=== PATIENT | male | born 1965 | race Caucasian/White ===

== ENCOUNTER → 2020-10-13 | Outpatient (CLI) | payer OTHER ==
[~2020-10-13] MED LIST: ALLOPURINOL 30300 M1 PO; DIAZEPAM 10 MG10 M2 PO; DILTIAZEM 24HR300 M2 PO; GAVISCON TABLE1 EACH PO; HYDROCHLOROTHIA25 M1 PO; IBUPROFEN 800800 M1 PO; LEXAPRO 10 MG T10 M2 PO; NORCO7.5 PO; PRINIVIL20 MG PO
[2020-10-13 11:45] LABS: URINE BILIRUBIN NEGATIVE (Negative); URINE BLOOD NEGATIVE (Negative); URINE CLARITY CLEAR; URINE COLOR YELLOW; URINE GLUCOSE-RANDOM* NEGATIVE (Negative); URINE KETONES NEGATIVE (Negative); URINE LEUKOCYTES-REFLEX NEGATIVE (Negative); URINE NITRITE-REFLEX NEGATIVE (Negative); URINE PROTEIN (DIPSTICK) NEGATIVE (Negative); URINE UROBILINOGEN 0.2 E.U./dl (0.2-1.0)
[2020-10-13 11:46] LABS: HEMATOCRIT 44.8 % (42.0-52.0); HEMOGLOBIN 15.3 gm/dL (14.0-18.0); MCH 31.2 pg (26.0-34.0); MCHC 34.1 g/dL (28.0-37.0); MCV 91.5 fL (80.0-100.0); RBC 4.9 mil/uL (4.50-6.00); RDW 14.6 % (10.5-14.5); WBC 8.4 thou/uL (4.0-11.0)
[2020-10-13 12:01] LABS: INR 0.95; PROTIME 10.4 Seconds (10.5-12.1)
[2020-10-13 12:02] LABS: ALBUMIN 4.4 g/dL (3.4-5.0); CALCIUM 9.6 mg/dL (8.5-10.1); CREATININE 1.2 mg/dL (0.7-1.3); POTASSIUM 4.3 mmol/L (3.5-5.1)
--- NOTE | 2020-10-13 12:52 | EKG ---
[place] [address] [facility] [place] [address] ELECTROCARDIOGRAM REPORT Name: HOLLY RENEE Room #: [facility].#: [id number] Admission: 10/13/20 Attend Phys: Vish Camejo MD Discharge: Date of : 65 Report #: [id number] [facility] Test Date: 2020-10-13 Test Time: 11:37:42 Pat Name: HOLLY RENEE Department: Room: Gender: Plug Grower: TOMMIE FERRIS : 1965 Requested By: Vish Camejo Order Number: [id number] : Dallas Wynne Measurements Intervals Ravenel Rate: 87 P: 4 RI: 166 QRS: -51 QRSD: 95 T: 31 QT: 370 QTc: 445 Interpretive Statements Sinus rhythm RSR' in V1 or V2, right VCD or RVH No previous ECG available for comparison Electronically Signed On 10-13-2020 12:52:09 CDT by Dallas Wynne [email or web address] <ELECTRONICALLY SIGNED> By: Dallas Wynne MD, [facility] 10/13/20 1252 1137 1137 Dallas Wynne MD, FACC /EPI
== END ==
LOC: PAC 11:03
PROVIDERS: ATTEND Orthopaedic Surgery
DX: Z01.812 Encounter for preprocedural laboratory examination (principal); Z01.810 Encounter for preprocedural cardiovascular examination; M17.12 Unilateral primary osteoarthritis, left knee; I10 Essential (primary) hypertension; Z91.048 Other nonmedicinal substance allergy status

== ENCOUNTER 2020-10-26 06:19 | Day surgery (SDC) | payer OTHER ==
[~2020-10-26] VITALS: Ht 177.8 cm; Wt 100.4 kg
[2020-10-26 08:14] VITALS: BP 131/75
[2020-10-26 12:00] VITALS: BP 124/81
[2020-10-26 12:30] VITALS: BP 120/77
[2020-10-26 13:00] VITALS: BP 134/74
[2020-10-26 13:30] VITALS: BP 120/81
--- NOTE | 2020-10-26 15:03 | NUR ---
ASSESSMENT: CM REVIEWED CHART AND MET WITH PATIENT AT THE BEDSIDE. PT IS S/P KNEE REPLACEMENT. PT REPORTS LIVING IN A HOUSE ALONE BUT REPORTS HE WILL BE STAYING WITH HIS SISTER FOR A FEW DAYS UNTIL A FRIEND COMES IN TOWN TO STAY AT HIS HOME. PT REPORTS HAVING ABOUT 10 STEPS WITH [employer]ANDR[employer] AT HIS SISTERS. PT REPORTS HE ALREADY HAD A WALKER AT HOME AND REPORTS HAVING OUTPATIENT THERAPY ALREADY ARRANGED AT A PLACE IN [place], [place] FOR MONDAY. CM DISCUSSED ROLE. PT DOES NOT ANTICIPATE HAVING ANY NEEDS FROM CM PRIOR TO D/C. PT DID WELL WITH PHYSICAL THERAPY TODAY.
[2020-10-26 15:07] VITALS: BP 120/81
--- NOTE | 2020-10-29 07:30 | O ---
[facility] [place] [address] OPERATIVE REPORT Name: HOLLY RENEE Room #: [facility]#: [id number] Admission: 10/26/20 Attend Phys: Vish Camejo MD Discharge: 10/26/20 Date of : 65 Report #: [id number] THIS REPORT FOR: cc: Yaakov Laura MD, Thomas P. MD Abraham,Vish Rojas MD ~ DATE OF SERVICE: 10/26/2020 PREOPERATIVE DIAGNOSIS: Left knee osteoarthritis. POSTOPERATIVE DIAGNOSIS: Left knee osteoarthritis. PROCEDURE: Left total knee arthroplasty using Navio robotic assistance. SURGEON: Vish Camejo MD. ASSURANCE ENGINEER: Luisa Quinn PA-C. INDICATION FOR ASSURANCE ENGINEER: Throughout the case, extensive retraction, manipulation of the knee was required. This was afforded to me by my retail store assistant. ANESTHESIA: LMA with adductor canal block. IMPLANTS: A Trevizo and Nephew size 8 Journey II BCS Oxinium femur, size 7 tibia, size 9 polyethylene and size 35 patella. TOURNIQUET TIME: 52 minutes. ESTIMATED BLOOD LOSS: 25 mL. COMPLICATIONS: None. SPECIMENS: None. CONDITION UPON LEAVING THE OR: Stable. INDICATIONS FOR PROCEDURE: The patient is a 55-year-old gentleman with severe left knee osteoarthritis. He had failed conservative measures for this and after discussion with him, he elected for left total knee arthroplasty. DESCRIPTION OF PROCEDURE: Risks, benefits, alternatives, complications were discussed in detail with the patient including but not limited to risk of anesthesia, risk of damage to nerves, arteries, blood vessels, risk for infection, bleeding, risk for continued knee pain, DVT, PE, and need for reoperation. Informed consent was obtained from the patient. Left knee was appropriately marked in the preoperative holding area. IV Ancef was given for [facility] [address] [facility] [place] [address] OPERATIVE REPORT Name: HOLLY RENEE Room #: [facility] [place].Geovany.#: [id number] Admission: 10/26/20 Attend Phys: Vish Camejo MD Discharge: 10/26/20 Date of : 65 Report #: [id number] preoperative antibiotics. Adductor canal block was placed by Anesthesia, was brought to the operating room and placed in supine position on the operating table. LMA anesthesia was induced without complication. Tourniquet was placed on the left thigh. Left lower extremity was prepped and draped in normal sterile fashion. Timeout was performed properly identifying the patient and procedure as well as the instrumentation and implants. All in the operating room in agreement. Left lower extremity was exsanguinated, tourniquet was inflated. Tourniquet time was 52 minutes. Standard midline approach to knee was made with 10 blade through the skin. Dissection was taken down sharply to fascia. Deep flaps were developed medially and laterally. Fresh 10 blade was used to make a medial parapatellar arthrotomy and the knee was inspected. There was severe tricompartmental osteoarthritis. ACL and PCL were removed sharply. Reference pins were placed in the femur and the tibia. The knee was digitally mapped using the Jumpido robotic system. Intraoperative plan was made. We sized the size 8 femur, the size 7 tibia and a 10 spacer. After acceptance of the intraoperative plan, the distal femoral cut was made with Navio bur. Distal femoral cutting block was pinned in place and chamfer cuts were made. Attention was turned to the tibia. Remainder of the menisci removed with Bovie cautery. Tibial resection guide was pinned in place using Navio for placement and tibial resection was made. Flexion and extension gaps were checked and found to have good balance in flexion and extension both medially and laterally. Tibia sized, found to be a size 7. A size 7 tibial trial was placed, pinned and punched. Size 8 femoral trial was placed, box cut was made. This was then trialed with a size 9 polyethylene, size 9 polyethylene demonstrated good balance medially and laterally with 1-2 mm of laxity throughout range of motion of the knee. A 9 mm of bone was resected from the posterior surface of the patella and a size 35 patellar trial button was placed, knee was taken through range of motion, found to be stable, found to have good patellar tracking. Trial components were removed. Bone ends were thoroughly irrigated with normal saline. A final size 7, tibia size 8 Journey II BCS Oxinium femur and a size 35 patella were cemented in place using standard cementation techniques. While the cement cured, a periarticular injection consisting of morphine, ropivacaine, epinephrine, Toradol was placed around the knee joint capsule. After the cement cured, tourniquet was deflated. Hemostasis was obtained with Bovie cautery. A final size 9 polyethylene was placed. A gram of vancomycin was placed deep in the joint. The fascia was closed with 0 Vicryl. Skin was closed with 2-0 Vicryl, 3-0 Monocryl. Dermabond and a JOSE M dressing was applied. The patient tolerated this procedure well and went to recovery room under care of Anesthesia postoperatively. <ELECTRONICALLY SIGNED> By: Vish Camejo MD 10/29/20 0730 [id number] Vish Camejo MD /nt
== END 2020-10-26 15:46 | disposition home or self-care (01) ==
LOC: OR → TBA 06:22 → OR 09:57 → 4S 11:25 → OR 12:51
PROVIDERS: ATTEND Orthopaedic Surgery
DX: M17.12 Unilateral primary osteoarthritis, left knee (principal); M25.562 Pain in left knee; I10 Essential (primary) hypertension; F32.9 Major depressive disorder, single episode, unspecified; M10.9 Gout, unspecified; K21.9 Gastro-esophageal reflux disease without esophagitis; Z98.890 Other specified postprocedural states; Z79.899 Other long term (current) drug therapy; Z20.822 Contact with and (suspected) exposure to COVID-19
CPT/HCPCS: 50010; 50101; 50415; 50954; 51130; 51225; 51320; 53000; 53078; 53365; 54118; 56527; 56528; 57095; 57103; 57110; 57127; 62110; 62900; 64042; 70005